=== PATIENT | female | born 1940 | race Caucasian/White ===

== ENCOUNTER → 2021-05-29 10:54 | Outpatient (BNVA) | payer OTHER, SELFPAY | PROVIDERS: Referring Provider Family Medicine; Visit Provider Student in an Organized Health Care Education/Training Program | DX: M16.12 Unilateral primary osteoarthritis, left hip (principal); I10 Essential (primary) hypertension | CPT/HCPCS: 99203 ==

== ENCOUNTER 2021-07-09 14:22 | Outpatient (CLI) | payer OTHER, SELFPAY ==
--- NOTE | 2021-07-09 13:45 | DI.RAD_ITS ---
Exam(s) XR PELVIS AP EXAM: XR PELVIS AP CLINICAL HISTORY: left hip osteoarthritis. TECHNIQUE: 2D digital imaging was performed. COMPARISON: No exams were available for comparison FINDINGS: BONES: No acute fracture is present. No bony destructive lesion is seen. JOINTS: No dislocation present. There are marked degenerative changes of the left hip with loss of th e joint space. There is subchondral sclerosis and cysts present. Periarticular spurring is present. There are also moderately severe degenerative changes in the right hip with near complete loss of t he joint space, subchondral sclerosis and cysts and periarticular spurring. SOFT TISSUE: Normal. IMPRESSION: Marked osteoarthritis of the left hip and moderately severe osteoarthritis of the right hip. DATA REPOSITORY: RADIATION DOSE DELIVERED:
== END 2021-07-09 14:23 | disposition home or self-care (01) ==
LOC: DIORS 14:22
PROVIDERS: PCP Family Medicine; Referring Provider Family Medicine
DX: M25.552 Pain in left hip (principal); Z01.818 Encounter for other preprocedural examination; M16.12 Unilateral primary osteoarthritis, left hip; I10 Essential (primary) hypertension
CPT/HCPCS: 72170

== ENCOUNTER 2021-07-20 01:31 | Outpatient (CLI) | payer MEDICARE, SELFPAY ==
[2021-07-20 12:30] LABS: Source Nasal/Nares
[2021-07-20 18:07] LABS: COVID-19 PCR Negative (Negative)
== END 2021-07-20 01:32 | disposition home or self-care (01) ==
LOC: LBO 01:31
PROVIDERS: PCP Family Medicine; Visit Provider Student in an Organized Health Care Education/Training Program
DX: Z20.822 Contact with and (suspected) exposure to COVID-19 (principal); Z01.818 Encounter for other preprocedural examination
CPT/HCPCS: 87635

== ENCOUNTER 2021-07-20 02:05 | Outpatient (CLI) | payer MEDICARE, SELFPAY ==
[2021-07-20 10:38] LABS: HCT 41.8 % (36.0-46.0); HGB 13.8 g/dL (11.2-15.7); MCH 31.4 pg (27.0-33.0); MCV 95.2 fL (80-95); MPV 9.2 fL (8.0-11.0); Platelet Count 224 10^3/uL (130-400); RBC 4.39 10^6/uL (3.93-5.22); RDW 13.1 % (11.7-14.6); RDW-SD 46.3 fL; WBC 8.34 10^3/uL (4.4-10.8)
[2021-07-20 14:12] LABS: BUN 16 mg/dL (7-18); CO2 29.9 mmol/L (21.0-32.0); CREATININE 0.8 mg/dL (0.55-1.02); Calcium 9.1 mg/dL (8.5-10.1); Chloride 106 mmol/L (98-107); Glucose 81 mg/dL (74-106)
[2021-07-20 14:21] LABS: Anion Gap 9.1 mmol/L (3-11); Sodium 145 mmol/L (136-145)
== END 2021-07-20 02:06 | disposition home or self-care (01) ==
LOC: LBO 02:05
PROVIDERS: PCP Family Medicine; Visit Provider Student in an Organized Health Care Education/Training Program
DX: M25.552 Pain in left hip (principal); M16.12 Unilateral primary osteoarthritis, left hip; Z01.818 Encounter for other preprocedural examination; Z01.812 Encounter for preprocedural laboratory examination
CPT/HCPCS: 36415; 80048; 85027; 86850; 86900; 86901

== ENCOUNTER 2021-07-22 05:58 | Day surgery (SDC) | payer MEDICARE, SELFPAY ==
[2021-07-22] VITALS (10 sets, daily range): BP systolic 113–187; BP diastolic 63–94; PULSE 65–98; RESP 13–21; TEMP 36–36.1; O2SAT 94–98; BMI 25.7
[2021-07-22] MEDS: Acetaminophen 500 MG TAB 1000 MG PO (06:33)
[2021-07-22] MEDS: Lactated Ringers 1,000 ML 80 ML IV (06:33)
[2021-07-22] MEDS: Celecoxib 200 MG CAP 400 MG PO (06:33)
--- NOTE | 2021-07-22 07:02 | ANES.PREOP_ITS ---
General Info Date of Service Date Performed: 07/22/21 Height: 5 ft 4 in Weight: 67.9 kg Body Mass Index (BMI): 25.7 Surgical Procedure: Operation Date: 07/22/21 08:05 Proposed Procedures Side Surgeon p Hip Total Hip Anterior (L) Left Ethan Funes MD Meds Allergies and Home Medications Allergies Allergy/AdvReac Type Severity Reaction Status Date / Time amoxicillin [From Augmentin] Allergy Verified 07/22/21 06:06 caffeine [From Cafcit] Allergy Verified 07/22/21 06:06 clavulanic acid Allergy Verified 07/22/21 06:06 [From Augmentin] ragweed pollen Allergy Verified 07/22/21 06:06 sulfamethoxazole Allergy Verified 07/22/21 06:06 [From Bactrim] trimethoprim [From Bactrim] Allergy Verified 07/22/21 06:06 cefuroxime [From Ceftin] AdvReac Intermediate Other (See Unverified 07/22/21 06:06 Comment) dust Allergy Uncoded 07/22/21 06:06 Home Medication Medication Instructions Recorded acetaminophen 500 mg capsule 500 mg PO Q6H PRN 05/28/21 ascorbic acid (vitamin C) 1,000 mg 1 g PO Q6H 05/28/21 tablet calcium carbonate 600 mg calcium 600 mg PO DAILY 05/28/21 (1,500 mg) tablet cholecalciferol (vitamin D3) 75 1,000 unit PO DAILY tab 05/28/21 mcg (3,000 unit) tablet coenzyme Q10 30 mg capsule 30 mg PO DAILY 05/28/21 epinephrine 0.3 mg/0.3 mL 0.3 mg IM Q5-15M PRN 05/28/21 injection, auto-injector garlic 300 mg PO DAILY 05/28/21 glucosamine-chondroitin 250 mg-200 2 tab PO QPC 05/28/21 mg tablet lactobacillus combination no.4 3 3,000 mmu cells PO DAILY 05/28/21 billion cell capsule lysine 500 mg tablet 500 mg PO DAILY 05/28/21 melatonin 5 mg tablet 5 mg PO HS PRN 05/28/21 metoprolol succinate 50 mg 50 mg PO HS 05/28/21 tablet,extended release 24 hr multivitamin with minerals 1 tab PO DAILY 05/28/21 omega-3 fatty acids 1,000 mg 1,000 mg PO BID 05/28/21 capsule resveratrol 50 mg capsule 50 mg PO DAILY 05/28/21 apixaban 5 mg tablet 5 mg PO BID 05/29/21 atorvastatin 40 mg tablet 40 mg PO QHS 05/29/21 Current Visit Medications: Current Medications Generic Name Dose Route Start Last Admin Trade Name Gentry PRN Reason Stop Dose Admin Acetaminophen 1,000 mg 07/22/21 06:00 07/22/21 06:33 Acetaminophen 500 Mg Tab PO 1,000 mg PREOP CANDI Administration Celecoxib 400 mg 07/22/21 06:00 07/22/21 06:33 Celecoxib 200 Mg Cap PO 400 mg PREOP CANDI Administration Tranexamic Acid 1,000 mg/ 60 mls @ 360 mls/hr 07/22/21 06:00 Sodium Chloride IV PREOP CANDI Ringer's Solution 1,000 mls @ 80 mls/hr 07/22/21 06:00 07/22/21 06:33 IV 08/09/21 23:59 80 mls/hr INFUSION CANDI Administration Cefazolin Sodium/Dextrose 2 gm in 50 mls @ 100 mls/hr 07/22/21 06:00 Ancef Duplex IVPB 07/22/21 23:59 PREOP CANDI IV Miscellaneous Supplies 1 each 07/22/21 06:00 Iv Access IV 08/09/21 23:59 DIRECTED CANDI Sodium Chloride 0 ml 07/22/21 06:00 Normal Saline Flush 10 Ml Syr IV 08/09/21 23:59 PRN PRN Sodium Chloride 0 ml 07/22/21 06:00 Normal Saline 10 Ml Vial IJ 08/09/21 23:59 DIRECTED PRN Sterile Water 0 ml 07/22/21 06:00 Water,Injection,Sterile 10 Ml Vial IJ 08/09/21 23:59 DIRECTED PRN PFSH Active Problems Active Problems: Problem Status Onset Code Dense breast R92.2 Hip osteoarthritis M16.9 Hypertension I10 Left hip pain M25.552 Stress bladder incontinence, female N39.3 Vitamin D deficiency E55.9 Osteoarthritis of left hip M16.12 Medical History Medical History Arthritis Atrial flutter pt. states followed up 04/08/21. 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 Tobacco Smoking/Tobacco Use Status: Former Tobacco Use Alcohol Alcohol Intake: current Alcohol intake frequency: a few times a week Alcohol type: wine Substance Use Substance use: Never Substance use type: does not use Vital Signs and Lab Results Vital Signs Most Recent Vital Signs in EMR: Most Recent Vital Signs Temp Pulse Resp BP Pulse Ox 36.1 C L 71 18 187/94 H 98 07/22/21 06:00 07/22/21 06:00 07/22/21 06:00 07/22/21 06:00 07/22/21 06:00 Lab Results Blood Type / Crossmatch: Patient ABO/Rh A Positive 07/20/21 10:07/20/21 Antibody Screen NEGATIVE 07/20/21 10:26 07/20/21 Complete Blood Count: White Blood Count 8.34 10^3/uL (4.4-10.8) 07/20/21 10:26 07/20/21 Red Blood Count 4.39 10^6/uL (3.93-5.22) 07/20/21 10:26 07/20/21 Hemoglobin 13.8 g/dL (11.2-15.7) 07/20/21 10:26 07/20/21 Hematocrit 41.8 % (36.0-46.0) 07/20/21 10:26 07/20/21 Platelet Count 224 10^3/uL (130-400) 07/20/21 10:26 07/20/21 Complete Metabolic Panel: Sodium Level 145 mmol/L (136-145) 07/20/21 10:26 07/20/21 Potassium Level 4.0 mmol/L (3.5-5.1) 07/20/21 10:07/20/21 Chloride Level 106 mmol/L (98-107) 07/20/21 10:07/20/21 Carbon Dioxide Level 29.9 mmol/L (21.0-32.0) 07/20/21 10:07/20/21 Blood Urea Nitrogen 16 mg/dL (7-18) 07/20/21 10:07/20/21 Creatinine 0.8 mg/dL (0.55-1.02) 07/20/21 10:07/20/21 Estimated GFR/1.73 m2 >= 60.00 (mL/min/1.73m2) 07/20/21 10:07/20/21 Calcium Level 9.1 mg/dL (8.5-10.1) 07/20/21 10:07/20/21 Glucose Level 81 mg/dL (74-106) 07/20/21 10:07/20/21 Liver Function Panel: No Data to Display Coagulation Panel: No Data to Display Cardiac Panel: No Data to Display Arterial Blood Gas: No Data to Display Venous Blood Gas: No Data to Display Pancreas Panel: No Data to Display Thyroid Panel: No Data to Display Infectious Disease: 2 Coronavirus (COVID-19)(PCR) Negative (Negative) 07/20/21 10:45 07/20/21 Coronavirus 2019 Source Nasal/Nares 07/20/21 10:45 07/20/21 Blood Cultures: No Data to Display Toxicology Panel: No Data to Display Anesthesia Assessment and Plan Anesthesia History Personal History: No History of Anesthesia Complications Family History: No Family History of Anesthesia Complications Exercise Tolerance Exercise Tolerance: Metabolic Equivalents>4 Pertinent Negatives Pertinent Negatives: No Symptoms of GERD (Nervous that the Celebrex on an empty stomach will upset her stomache, plan to prophylactically treat with Pepcid IV ) and No History of CVA/TIA (TIA March 2021, started on Apixiban, no residual symptoms) Cardiac & Pulmonary Exam Cardiac Exam: Normal S1/S2 Heart Sounds Pulmonary Exam: Clear Bilateral Breath Sounds Airway Exam Known Difficult Airway: No Mallampati Class: 2 Mouth Opening: Normal (> 3cm) Thyromental Distance: Greater than 3 cm Neck Range of Motion: Limited ROM (Slight decrease in extension) Neck Circumference: Normal Teeth Condition: Normal Dentition ASA Classification ASA Score: ASA 2 Emergency Case?: No NPO Status NPO Status: NPO Clears >2 hours, Solids >8 hours Anesthesia Plan Resuscitation Status: Full Code Anesthesia Technique: Spinal Anesthesia Airway Planned: Natural Airway Monitors Used: Standard Monitors
[2021-07-22] MEDS: ceFAZolin 2 GM/50 ML BAG IVPB (07:56)
[2021-07-22] MEDS: Bupivacaine 0.25% Pres-Free 30 ML VIAL (08:35)
[2021-07-22] MEDS: Ketorolac 30 MG/ML VIAL (08:35)
--- NOTE | 2021-07-22 09:10 | DI.RAD_ITS ---
Exam(s) XR HIP LT IN OR EXAM: XR HIP LT IN OR CLINICAL HISTORY: left hip djd. TECHNIQUE: 2D digital imaging was performed. COMPARISON: No exams were available for comparison FINDINGS: Intraoperative fluoroscopy was provided during hip arthroplasty. Total fluoroscopy time 28.9 seconds: Prompt of dose 3.74mGy IMPRESSION: DATA REPOSITORY: RADIATION DOSE DELIVERED:
--- NOTE | 2021-07-22 09:46 | W.PM.DSUDISC ---
Documented by User: SANTY Guido 07/22/21 09:52 Discharge Plan Disposition Patient Disposition: HOME Condition: Good Discharge Details Reason For Visit: Left CARMEN Attending Provider: Ethan Funes Primary Care Provider: Rob Domingo Home Meds and New Rx's Prescriptions: New celecoxib 200 mg capsule 200 mg PO BID Qty: 60 RF: 3 pantoprazole 40 mg tablet,delayed release (DR/EC) 40 mg PO DAILY Qty: 30 RF: 0 acetaminophen 500 mg capsule 1,000 mg PO Q8H PRN PRNQty: 90 RF: 0 oxycodone 5 mg tablet 5 mg PO Q4H MDD 6 tabs PRN (Reason: pain) Qty: 20 RF: 0 Continued calcium carbonate 600 mg calcium (1,500 mg) tablet 600 mg PO DAILY RF: 0 coenzyme Q10 [CoQ-10] 30 mg capsule 30 mg PO DAILY RF: 0 epinephrine [EpiPen 2-Alvin] 0.3 mg/0.3 mL auto-injector 0.3 mg IM Q5-15M PRNRF: 0 omega-3 fatty acids [Fish Oil Concentrate] 1,000 mg capsule 1,000 mg PO BID RF: 0 garlic Tablet 300 mg PO DAILY RF: 0 multivitamin with minerals [Hair,Skin and Nails] Tablet 1 tab PO DAILY RF: 0 lysine 500 mg tablet 500 mg PO DAILY RF: 0 melatonin 5 mg tablet 5 mg PO HS PRNRF: 0 metoprolol succinate 50 mg tablet extended release 24 hr 50 mg PO HS RF: 0 glucosamine-chondroitin [Osteo Bi-Flex] 250-200 mg tablet 2 tab PO QPC RF: 0 Probiotic 3 billion cell capsule 3,000 mmu cells PO DAILY RF: 0 resveratrol 50 mg capsule 50 mg PO DAILY RF: 0 ascorbic acid (vitamin C) 1,000 mg tablet 1 g PO Q6H RF: 0 cholecalciferol (vitamin D3) 75 mcg (3,000 unit) tablet 1,000 unit PO DAILY RF: 0 Eliquis 5 mg tablet 5 mg PO BID RF: 0 atorvastatin [Lipitor] 40 mg tablet 40 mg PO QHS RF: 0 Discontinued acetaminophen 500 mg capsule 500 mg PO Q6H PRNRF: 0 Discharge Instructions Additional Instructions: Total Hip Discharge Instructions Activity: The most important activity is to walk. You should try to take short walks a few times a day. You have no restrictions on movement or positioning, but do not try to force what you do. You will find some stiffness and weakness with hip flexion (lifting your knee). Do not try to strengthen this too early, continue to practice walking and stairs and this will come. - Outpatient physical therapy can be helpful to help return you to a normal gait and improve your flexibility and strength. This can start around 2 weeks. For some patients, it?s not necessary. Usually this is determined at the time of discharge or at the first post-operative visit. - You should wear the ADEOLA hose on both legs for 2 weeks. Dressing: Keep the surgical dressing in place for at least one week. After the first week it may be removed and replace with light gauze and tape or nothing. It may get wet after 3 days but avoid soaking the dressing. If it gets wet, just lightly pat dry. It is important to always keep some gauze between skin folds, especially when you are sitting. Spend some time with the wound exposed when you are lying flat as the incision does wrinkle onto itself. Medications: - You should take Tylenol and an anti-inflammatory Celebrex as your primary pain control medications. If the Celebrex is too expensive or not covered, please call the office for another alternative (Advil/Ibuprofen or Naproxen/Aleve). - You have been prescribed a stronger pain medication Oxycodone for breakthrough pain, take as needed as prescribed. - You have also been prescribed a stomach acid reduction agent Pantoprozole to help reduce stomach acid and reflux. - You will be taking your apixaban for DVT prevention unless instructed otherwise. - If you have constipation you should take Colace or Miralax (both [id number]). It takes most people 3-4 days to have a bowel movement. Follow-up: 2 weeks If you have any acute concerns or questions, please do not hesitate to contact the office at [phone]. You may contact Dr. Funes with any questions after hours through the hospital at [phone] or on his cell phone at [phone]. Stand Alone Forms: Anesthesia Discharge Inst., Carmen Clark ([facility]) Referrals: Ethan Funes MD [ [facility] STAFF PHYSICIAN] - Equipment/Supplies: Walker Activity:: Activity as Tolerated Shower/Bathe:: 72 hours Diet:: As Tolerated Discharge Orders Discharge Orders: Discharge Order (Routine); Ordered 07/22/21 Ordered By: Ethan Funes DS: Diagnosis Discharge Diagnosis (1) Osteoarthritis of left hip: Status: Acute Documented by User: Ethan Funes MD 07/22/21 10:57 Discharge Plan Disposition Patient Disposition: HOME Condition: Good Discharge Details Reason For Visit: Left CARMEN Attending Provider: Ethan Funes Primary Care Provider: Rob Domingo Home Meds and New Rx's Prescriptions: New celecoxib 200 mg capsule 200 mg PO BID Qty: 60 RF: 3 pantoprazole 40 mg tablet,delayed release (DR/EC) 40 mg PO DAILY Qty: 30 RF: 0 acetaminophen 500 mg capsule 1,000 mg PO Q8H PRN PRNQty: 90 RF: 0 oxycodone 5 mg tablet 5 mg PO Q4H MDD 6 tabs PRN (Reason: pain) Qty: 20 RF: 0 Continued calcium carbonate 600 mg calcium (1,500 mg) tablet 600 mg PO DAILY RF: 0 coenzyme Q10 [CoQ-10] 30 mg capsule 30 mg PO DAILY RF: 0 epinephrine [EpiPen 2-Alvin] 0.3 mg/0.3 mL auto-injector 0.3 mg IM Q5-15M PRNRF: 0 omega-3 fatty acids [Fish Oil Concentrate] 1,000 mg capsule 1,000 mg PO BID RF: 0 garlic Tablet 300 mg PO DAILY RF: 0 multivitamin with minerals [Hair,Skin and Nails] Tablet 1 tab PO DAILY RF: 0 lysine 500 mg tablet 500 mg PO DAILY RF: 0 melatonin 5 mg tablet 5 mg PO HS PRNRF: 0 metoprolol succinate 50 mg tablet extended release 24 hr 50 mg PO HS RF: 0 glucosamine-chondroitin [Osteo Bi-Flex] 250-200 mg tablet 2 tab PO QPC RF: 0 Probiotic 3 billion cell capsule 3,000 mmu cells PO DAILY RF: 0 resveratrol 50 mg capsule 50 mg PO DAILY RF: 0 ascorbic acid (vitamin C) 1,000 mg tablet 1 g PO Q6H RF: 0 cholecalciferol (vitamin D3) 75 mcg (3,000 unit) tablet 1,000 unit PO DAILY RF: 0 Eliquis 5 mg tablet 5 mg PO BID RF: 0 atorvastatin [Lipitor] 40 mg tablet 40 mg PO QHS RF: 0 Discontinued acetaminophen 500 mg capsule 500 mg PO Q6H PRNRF: 0 Discharge Instructions Additional Instructions: Total Hip Discharge Instructions Activity: The most important activity is to walk. You should try to take short walks a few times a day. You have no restrictions on movement or positioning, but do not try to force what you do. You will find some stiffness and weakness with hip flexion (lifting your knee). Do not try to strengthen this too early, continue to practice walking and stairs and this will come. - Outpatient physical therapy can be helpful to help return you to a normal gait and improve your flexibility and strength. This can start around 2 weeks. For some patients, it?s not necessary. Usually this is determined at the time of discharge or at the first post-operative visit. - You should wear the ADEOLA hose on both legs for 2 weeks. Dressing: Keep the surgical dressing in place for at least one week. After the first week it may be removed and replace with light gauze and tape or nothing. It may get wet after 3 days but avoid soaking the dressing. If it gets wet, just lightly pat dry. It is important to always keep some gauze between skin folds, especially when you are sitting. Spend some time with the wound exposed when you are lying flat as the incision does wrinkle onto itself. Medications: - You should take Tylenol and an anti-inflammatory Celebrex as your primary pain control medications. If the Celebrex is too expensive or not covered, please call the office for another alternative (Advil/Ibuprofen or Naproxen/Aleve). - You have been prescribed a stronger pain medication Oxycodone for breakthrough pain, take as needed as prescribed. - You have also been prescribed a stomach acid reduction agent Pantoprozole to help reduce stomach acid and reflux. - You will be taking your apixaban for DVT prevention unless instructed otherwise. - If you have constipation you should take Colace or Miralax (both [id number]). It takes most people 3-4 days to have a bowel movement. Follow-up: 2 weeks If you have any acute concerns or questions, please do not hesitate to contact the office at [phone]. You may contact Dr. Funes with any questions after hours through the hospital at [phone] or on his cell phone at [phone]. Stand Alone Forms: Anesthesia Discharge Inst., Carmen Clark ([facility]) Referrals: Ethan Funes MD [ [facility] STAFF PHYSICIAN] - Equipment/Supplies: Walker Activity:: Activity as Tolerated Shower/Bathe:: 72 hours Diet:: As Tolerated Discharge Orders Discharge Orders: Discharge Order (Routine); Ordered 07/22/21 Ordered By: Ethan Funes
--- NOTE | 2021-07-22 11:16 | W.ANESPOSTOP ---
Postoperative Evaluation Date, Time and Location Date Performed: 07/22/21 Time Performed: 11:16 Patient Location: Day Surgery Unit Vital Signs Most Recent Imported Vital Signs: Most Recent Vital Signs Temp Pulse Resp BP Pulse Ox 36.1 C L 67 18 159/86 H 97 07/22/21 10:30 07/22/21 10:30 07/22/21 10:30 07/22/21 10:30 07/22/21 10:30 Pain Score Most Recent Pain Score: Most Recent Pain Score Pain Level 0 07/22/21 10:30 Assessment Mental Status: Awake (Alert & Oriented to Patient Baseline) Airway and Respiratory Function: Patent airway with normal (patient baseline) respiratory exam Cardiovascular Function: Hemodynamically Stable Hydration Status: Adequately Hydrated Nausea & Vomiting: No Nausea or Vomiting Pain: Pt. Denies Any Pain Peripheral Nerve Block: Patient did not receive a nerve block Teaching Patient Teaching: Discussed Safe Use of Pain Medication Given Recent Anesthesia
--- NOTE | 2021-07-22 13:17 | IN_ITS ---
Date of service: 07/22/21 Time of Service: 13:17 PT Notes Visit Reasons: Left CARMEN Physical Therapy Day Surgery Initial Evaluation Date: 07/22/2021 Referring Doctor: SANTY Guido PT Orders: PT CONSULT: Status post Ortho surgery. Precautions: WBAT on left LE with AD. Patient Profile/Admitting Diagnosis: Shala is a 81-year-old female with degenerative joint disease of the left hip and is status post left anterior total hip arthroplasty on postoperative day 0. 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 Equipment Owned/DME: [employer] Subjective: Agreeable to PT consult. Reports 3?4/10 pain in the left hip. Objective: General Observation: Mepilex Ag over surgical incision. TEDS on B LE. Mental Status: Alert and oriented x 4 Pain: 3?4/10 pain in the left hip ROM: Right Lower Extremity: Hip flexion WFL. Hip abduction WFL. Knee flexion WFL. Ankle dorsiflexion WFL. Ankle plantarflexion WFL. Left Lower Extremity: Hip flexion WFL. Hip abduction WFL. Knee flexion WFL. Ankle dorsiflexion WFL. Ankle plantarflexion WFL. Strength: Lower you doing with your food and Right Lower Extremity: Hip flexors 5/5. Hip abductors 5/5. Knee flexors 5/5. Knee extensors 5/5. Ankle dorsiflexors 5/5. Ankle plantarflexors 5/5. Left Lower Extremity:Hip flexors 4/5. Hip abductors 4/5. Knee flexors 5/5. Knee extensors 4/5. Ankle dorsiflexors 5/5. Ankle plantarflexors 5/5. Sensation: Intact as to pain and light pressure in BLE. Bed Mobility/Transfers: Supine to sit supervision Sit to stand contact-guard assist Stand to sit standby assist Bed to chair standby assist Gait: Instructed patient with correct and safe gait pattern using front wheeled walker for 75 feet with step to gait pattern and report of 4?5/10 pain in left hip. Ordered initially mild lightheadedness but eventually subsided. Denies headache and chest pain. He has Balance: Static Sitting: Normal Dynamic Sitting: Good Static Standing: Fair Dynamic Standing: Fair Special Tests: Mobility Limitations Standardized Measure [facility]-PAC 6 clicks Basic Mobility Inpatient Short Form: Raw Score: 23 CMS Score: 11% deficit all Informed Consent/Education: Patient instructed in purpose of PT consult. Packet containing L CARMEN exercise protocol has been given to patient. Education and training on initial set of exercises that can be done at home have been completed with patient. Assessment: Patient requires the use of a front wheeled walker for all transfers test performed to reduce fall risk and maximize independence. Patient presents with clinical signs and symptoms consistent with current/admitting diagnoses that have resulted to mobility limitations, gait instability, generalized weakness, and impairment of motor control as demonstrated by the following impairment level findings: 1. Decreased strength to left hip major muscle groups 2. Impaired standing balance both 07329 moderate Impairments are contributing to the following functional limitations: 1. Inability to safely ambulate without assistive device 2. Increase completion time for mobility ADL performance 3. Increased fall risk Patient is assessed as a complexity based on the following: History: 81-year-old female involving with impairment level findings, functional limitations, and past medical history as indicated above Examination: Demonstrable impairment in strength, balance, and mobility level with underlying impairments and functional limitations as documented above Presentation: Evolving Decision Makin moderate complexity Goals: N/A. PT evaluation and 1-2 treatment sessions only for functional mobility training using recommended AD and for HEP instruction. Plan of Care/Treatment Plan: N/A. PT evaluation and 1-2 treatment session only for functional mobility training using recommended AD and for HEP instruction. DISCHARGE RECOMMENDATIONS: Home when medically cleared by orthopedic surgeon. Outpatient PT services in order to facilitate return to independent community ambulation without an assistive device. TREATMENT CODE/TIME: 61611 x 20 minutes, 95050 x 11 minutes beginning at 13:17 PM. Thank you for the opportunity to participate in the care of this patient. Edith Ventura PT, DPT, CLT [facility] [place], [place]
--- NOTE | 2021-07-23 06:54 | ROE_ITS ---
Date of service: 07/22/21 Time of Service: 09:16 Operative Note Operative Note DATE OF PROCEDURE: 07/23/21 PRE-OP DIAGNOSIS: Left Hip Osteoarthritis POST-OP DIAGNOSIS: same PROCEDURE: Left Anterior Total Hip Arthroplasty SURGEON: Ethan Funes AIRCRAFT INSTRUMENT ENGINEER: Reginald Garcia ANESTHESIA TYPE: Spinal Refer to Anesthesia Record ESTIMATED BLOOD LOSS: 150 PATHOLOGY: none sent COMPLICATIONS: None Patient was transported to: PACU Patient's condition: stable Implants: 1. Depuy [place] Acetabular Component, 50mm 2. Depuy Acetabular Liner, [id number] 3. Depuy Corail Short Neck Collared Femoral Stem, Size 13 4. Depuy Altrx Ceramic Femoral Head, Size 32+5mm Indications: I have seen Shala in clinic for symptoms of hip arthritis, confirmed with radiographic findings. Shala has exhausted nonoperative methods and was having significant limitations in daily function and desired better function and less pain. I discussed the technical details of a hip replacement. I explained the risks of the procedure to include, but not limited to, bleeding, infection, pain, stiffness, fracture, damage to nerves and vessels, damage to muscles and tendons, loosening, instability, leg length inequality, need for repeat procedure, blood clot and cardiopulmonary demise. Despite these risks, Shala elected to proceed. Findings: There was significant signs of arthritis throughout the hip. Procedure Description: Shala was greeted in the preoperative holding area where the correct side was identified and marked. The consent was reviewed with the patient and signed. The history and physical was updated. All questions were answered. She was taken back to the operating room. A spinal anesthestic was then administered. The feet were wrapped with cast padding and Coban and then placed into the boot liners and then into the boots. Care was taken to protect the skin and make sure the heels were fully down and the boots were stable. The patient was then positioned onto the HANA table. Both legs were held in a neutral position. SCDs were applied. The patient was then slid down onto a peroneal post. Prophylactic antibiotics in the form of Cefazolin were administered. 1g of Tranxemic Acid was given intravenously within 30 minutes of incision. The left leg was then prepped with Chloraprep and draped in a standard fashion. A second prep with Chloraprep was performed prior to placement of a shower-curtain type drape with Iodine impregnated skin protection. A timeout to confirm correct identity, side and site, procedure, allergies, anesthesia, and medical concerns was performed. An obliquely oriented incision was made starting lateral to the ASIS and running distal over the Tensor Fascia Liliane (TFL) muscle belly toward the fibular head, approximately 10cm. The skin and soft tissue was dissected sharply, through Rolly?s fascia, and to the fascia of the TFL. With the fascia and superior border of the IT band identified, the fascia was incised with a new knife just above any perforators from the IT band. The TFL muscle belly was bluntly dissected away from the fascia and moved laterally. The fat between TFL and rectus was identified to ensure the dissection was not within the TFL. Blunt dissection created space between abductors and the capsule and retractor was placed over the lateral femoral neck. The fibers of the rectus femoris tendon were identified and these were freed from the anterior capsule. A second cobra retractor was placed around the medial femoral neck. The TFL was further retracted laterally to show the deep fascia. Careful dissection through this layer identified three main crossing vessels of the lateral femoral circumflex. These were cauterized in multiple locations and then cut without any noticeable bleeding. The TFL was further released bluntly from the deep fascia to expose anterior hip capsule and fat The Ti orthopaedic retractor was then placed beneath the TFL and against sartorius and medial soft tissues to protect and retract the soft tissues. A T-capsulotomy was then performed starting at the superior lateral acetabulum and moving distally to the intertrochanteric ridge. These capsular flaps were tagged with a No. 1 Ethibond and elevated from within. The capsular flaps were released to the shoulder of the lateral neck and to the lesser trochanter to give excellent visualization of the proximal femur. A neck osteotomy was performed using an oscillating saw based on preoperative templates. This cut started in the shoulder and of the lateral neck and exited medially. The saw was at all times directed medially to avoid injury to the greater trochanter. Gross traction was applied to the leg and the osteotomy opened. The femoral head was removed with a corkscrew, making sure to protect the TFL on its exit. Traction was released after head removal. This was measured on the back table to determine the starting reamer size. Portions of the rectus obscuring visualization were minimally elevated off the superior acetabulum. An anterior retractor was placed over the anterior wall between capsule and labrum and attached to the Gripper retraction system. The femur was rotated to 90 degrees and medial capsule was fully released until the lesser trochanter was palpable and visible; the femur was returned to 30 degrees. A posterior retractor was placed similarly between capsule and labrum. This provided excellent visualization. The contents of the cotyloid fossa were removed with electrocautery and the labrum was removed with a knife. There was a notable floor osteophyte. There was significant chondromalacia of the superior acetabulum. Acetabular reaming began with a 45mm reamer. This first reaming was directed anterior to posterior and medial to get down to the true floor. This was inspected and reamed until the true floor was reached. The anterior retractor was then released and entry and exit was provided by traction on the capsular flaps. I then reamed sequentially up to a 50mm reamer where good fit was obtained. The larger reamers were oriented based on anatomical reference of the anterior and lateral crook to ensure proper abduction and anteversion. Positioning and size was confirmed with the fluoroscopy. A 50mm Depuy [place] acetabular component was selected. The acetabulum was reamed around the periphery with the selected acetabular size to prevent a rim fit. The deep tissues were irrigated. The acetabular component was then impacted in a position of about 40-45 degrees of abduction and 15-20 degrees of anteversion, using the patient?s anatomy as the ultimate landmark. Fluoroscopy was used to confirm this. There was excellent emissions testing technician of the acetabular component and the inserting handle was removed. The acetabular liner, Depuy [id number] polyethylene liner, was inserted and lined up with the tines of the acetabular component. There was no soft tissue interposition. The liner was then impacted into position and confirmed to be well-seated. A portion of the whitley-articular cocktail was then injected around the acetabulum into the capsule and periosteum. This cocktail consisted of 50cc of 0.25% Bupivicaine and 20cc of Exparel and 30mg of Ketorolac. The leg was rotated to 120 degrees. Any remaining medial capsule was released until the lesser trochanter was easily palpable. A retractor was placed medial ly. The lateral capsule was further released into the shoulder to allow access to the greater trochanter. A Radford retractor was placed over the greater trochanter which allowed the trochanter to flip in front of the capsule for excellent exposure. The leg was brought down into maximal extension and 20 degrees of adduction while ensuring there was no impingement on the acetabulum. Any remnant capsule within the trochanter was released. Piriformis and obturator externis were identified and protected. There was excellent access to the proximal femur. The lateral neck remnant was removed with a rongeur. A blunt canal probe was used to identify the canal and trajectory for later broaching. A box osteotome initiated the broach course. A small curved rasp and a curved curette were used to work laterally. Broaching then began with a size 8 Corail broach. This was inserted manually around the trochanter and into the canal before mallet blows. The broach was seated to a few millimeters below the cut level based on the neck cut and the preoperative template. Sequential broaching was continued with the [employer] pneumatic broaching device until a tight fit was obtained with good rotational control of the femur. A trial short neck was inserted along with a +5 trial head. The leg was brought out of extension and adduction and then reduced with traction and internal rotation. The leg was stable anteriorly in a position of 30 degrees of extension and 90 degrees of external rotation. Fluoroscopy was used to ensure there was no fracture and the stem was seated well. Leg lengths were checked with an AP pelvis and pelvic reference points. Xunlei navigation system was used to confirm appropriate positioning and leg length and offset. Once content with the desired offset and leg lengths, the leg was brought back into extension, external rotation and adduction. The periosteum and surrounding tissue was injected with remaining portion of the whitley-articular cocktail. The proximal femur was irrigated as well as the deep tissues. The Depuy Corail short neck collared stem, size 13, was then manually inserted into the proximal femur making sure to control rotation. It was then malleted into position with light blows, giving breaks to allow bone expansion and decrease risk of fracture. The selected Depuy Altrx Ceramic Head, size 32+5mm, was then placed onto the clean and dry trunnion and secured with impaction onto the tapered fit. The leg was brought back out of extension and adduction and reduced with traction and internal rotation. Stability was confirmed with no shuck at 90 degrees of external rotation and 30 degrees of extension. No impingement through range of motion arc. Final x-ray images were obtained with fluoroscopy to confirm adequate positioning and no intraoperative fracture. The deep tissues were thoroughly irrigated with Irrisept chlorhexadine solution. The capsule was then reapproximated with the previously placed Ethibond sutures. The TFL fascia was finally closed with a No. 2 Stratafix, barbed suture. Deep tissues were then reapproximated with 0 Vicryl and a running 2-0 Vicryl. The skin was closed with a running 4-0 Monocryl in a subcuticular fashion. This was reinforced with skin glue. A Mepilex silver dressing was applied. At the end of the case, all counts were correct. Shala was transferred to the hospital stretcher without difficulty and suffering no apparent complication. She has a good prognosis. Physical therapy will start today and without restrictions, weight-bearing as tolerated. Her home dose of Apixaban 5mg BID will be used for DVT prophylaxis.
== END 2021-07-22 14:10 | disposition home or self-care (01) ==
PROVIDERS: PCP Family Medicine; Visit Provider Student in an Organized Health Care Education/Training Program
PROC: (CPT 27130; principal; 2021-07-22 07:45)
DX: M16.12 Unilateral primary osteoarthritis, left hip (principal); Z96.652 Presence of left artificial knee joint; I10 Essential (primary) hypertension; Z86.19 Personal history of other infectious and parasitic diseases; Z87.19 Personal history of other diseases of the digestive system
CPT/HCPCS: 27130; 20985; C1776; 97162; 97530; 73501; J0690; J1885; J2001; J2405

== ENCOUNTER 2021-08-03 10:34 | Outpatient (CLI) | payer MEDICARE, SELFPAY ==
--- NOTE | 2021-08-03 10:00 | DI.RAD_ITS ---
Exam(s) XR HIP LT COMPLETE AP PELVIS EXAM: XR HIP LT COMPLETE AP PELVIS CLINICAL HISTORY: 1ST POST OP L CARMEN. TECHNIQUE: 2D digital imaging was performed. COMPARISON: CR XR PELVIS AP from 07/09/2021 FINDINGS: There is satisfactory position alignment of the components of the recently placed left hip prosthesis . No fracture or loosening evident. IMPRESSION: DATA REPOSITORY: RADIATION DOSE DELIVERED:
== END 2021-08-03 10:35 | disposition home or self-care (01) ==
LOC: DIORS 10:35
PROVIDERS: PCP Family Medicine; Referring Provider Family Medicine; Visit Provider Student in an Organized Health Care Education/Training Program
DX: Z96.642 Presence of left artificial hip joint (principal); Z47.1 Aftercare following joint replacement surgery
CPT/HCPCS: 73502

== ENCOUNTER → 2021-08-31 14:23 | Outpatient (BNVA) | payer MEDICARE, SELFPAY | PROVIDERS: PCP Family Medicine; Referring Provider Family Medicine; Visit Provider Student in an Organized Health Care Education/Training Program | DX: Z47.1 Aftercare following joint replacement surgery (principal); Z96.642 Presence of left artificial hip joint; M65.311 Trigger thumb, right thumb; M89.8X4 Other specified disorders of bone, hand | CPT/HCPCS: 99213 ==

== ENCOUNTER 2024-04-09 09:10 | Outpatient (CLI) | payer MEDICARE, SELFPAY ==
--- NOTE | 2024-04-09 08:45 | DI.RAD_ITS ---
Exam(s) XR HIP RT COMPLETE AP PELVIS EXAM: XR HIP RT COMPLETE AP PELVIS CLINICAL HISTORY: RIGHT HIP PAIN. TECHNIQUE: 2D digital imaging was performed of the right hip. Two images were obtained. AP pelvis a nd lateral right hip views were obtained. COMPARISON: CR XR HIP LT COMPLETE AP PELVIS from 08/03/2021 FINDINGS: BONES: No acute fracture is present. No bony destructive lesion is seen. JOINTS: No dislocation present. There is a left total hip replacement which appears grossly unremarka ble on the single image. There is marked narrowing of the central right hip joint space. There is a subchondral cyst seen in the acetabulum. Osteophytes is seen at the femoral head. SOFT TISSUE: Normal. IMPRESSION: There are marked degenerative changes seen in the right hip. DATA REPOSITORY: RADIATION DOSE DELIVERED:
== END 2024-04-09 09:11 | disposition home or self-care (01) ==
LOC: DIORS 09:10
PROVIDERS: PCP Family Medicine; Referring Provider Family Medicine; Visit Provider Student in an Organized Health Care Education/Training Program
DX: M16.11 Unilateral primary osteoarthritis, right hip
CPT/HCPCS: 99213; 73502

== ENCOUNTER 2024-05-21 14:06 | Outpatient (CLI) | payer MEDICARE, SELFPAY ==
[2024-05-21 11:41] LABS: HCT 39.4 % (36.0-46.0); HGB 13.2 g/dL (11.2-15.7); MCH 32.2 pg (27.0-33.0); MCHC 33.5 % (32.0-36.0); MCV 96 fL (80-95); MPV 9.5 fL (8.0-11.0); Platelet Count 228 10^3/uL (130-400); RDW 12.8 % (11.7-14.6); RDW-SD 45.1 fL; WBC 7.61 10^3/uL (4.4-10.8)
[2024-05-21 12:17] LABS: Anion Gap 5.9 mmol/L (3-11); BUN 20 mg/dL (7-18); CO2 32.1 mmol/L (21.0-32.0); CREATININE 0.8 mg/dL (0.55-1.02); Calcium 9.5 mg/dL (8.5-10.1); Chloride 103 mmol/L (98-107); Estimated GFR 73.52 (mL/min/1.73m2); Glucose 87 mg/dL (74-106); Potassium 3.5 mmol/L (3.5-5.1); Sodium 141 mmol/L (136-145)
== END 2024-05-21 14:07 | disposition home or self-care (01) ==
LOC: LBO 14:06
PROVIDERS: PCP Family Medicine; Visit Provider Student in an Organized Health Care Education/Training Program
DX: M16.11 Unilateral primary osteoarthritis, right hip (principal); Z01.818 Encounter for other preprocedural examination
CPT/HCPCS: 36415; 80048; 85027

== ENCOUNTER 2024-06-20 07:46 | Day surgery (SDC) | payer MEDICARE, SELFPAY ==
[2024-06-20] VITALS (14 sets, daily range): BP systolic 102–186; BP diastolic 57–91; PULSE 62–75; RESP 13–18; TEMP 36.1–36.7; O2SAT 92–97; BMI 25.9
--- NOTE | 2024-06-20 06:23 | W.ANESPRE ---
General Info Date of Service Date Performed: 06/20/24 Height: 5 ft 4 in Weight: 68.5 kg Body Mass Index (BMI): 25.9 Surgical Procedure: Operation Date: 06/20/24 10:05 Proposed Procedure Side Surgeon p Hip Total Hip Anterior, Corail Short Neck Right Ethan Funes MD Meds Allergies and Home Medications Allergies Allergy/AdvReac Type Severity Reaction Status Date / Time sulfamethoxazole (From Allergy Intermediate Skin Rash Verified 06/20/24 08:32 Bactrim) trimethoprim (From Bactrim) Allergy Intermediate Skin Rash Verified 06/20/24 08:32 caffeine (From Cafcit) Allergy Mild Unknown Verified 06/20/24 08:32 ragweed pollen Allergy Unknown Verified 06/20/24 08:32 amoxicillin (From Augmentin) AdvReac Intermediate Diarrhea Verified 06/20/24 08:32 cefuroxime (From Ceftin) AdvReac Intermediate Other (See Unverified 06/20/24 08:32 Comment) clavulanic acid (From AdvReac Intermediate Diarrhea Verified 06/20/24 08:32 Augmentin) dust Allergy Unknown Uncoded 06/20/24 08:32 Home Medication ?Medication ?Instructions ?Recorded ascorbic acid (vitamin C) 1,000 mg 1 g PO Q6H 05/28/21 tablet calcium carbonate 600 mg PO DAILY 05/28/21 cholecalciferol (vitamin D3) 75 1,000 unit PO DAILY 05/28/21 mcg (3,000 unit) tablet coenzyme Q10 30 mg capsule (CoQ-10) 100 mg PO DAILY 05/28/21 epinephrine 0.3 mg/0.3 mL 0.3 mg IM Q5-15M PRN 05/28/21 injection, auto-injector (EpiPen 2-Alvin) garlic 300 mg PO DAILY 05/28/21 glucosamine-chondroitin 250 mg-200 2 tab PO QPC 05/28/21 mg tablet (Osteo Bi-Flex) lactobacillus combination no.4 3 3,000 mmu cells PO DAILY 05/28/21 billion cell capsule (Probiotic) lysine 500 mg tablet 1,000 mg PO BID 05/28/21 multivitamin with minerals 1 tab PO DAILY 05/28/21 (Hair,Skin and Nails tablet) omega-3 fatty acids 1,000 mg 1,000 mg PO HS 05/28/21 capsule (Fish Oil Concentrate) resveratrol 50 mg capsule 150 mg PO DAILY 05/28/21 apixaban 5 mg tablet (Eliquis) 5 mg PO BID 05/29/21 chlorthalidone 25 mg tablet 25 mg PO DAILY 04/09/24 metoprolol succinate 50 mg 100 mg PO HS 04/09/24 tablet,extended release 24 hr rosuvastatin 10 mg tablet 10 mg PO DAILY 04/09/24 psyllium husk 6 gram/6 gram oral 1 tbsp PO DAILY 06/19/24 powder (Konsyl Sugar-Free) turmeric root extract 500 mg 1,000 mg PO DAILY 06/19/24 capsule acetaminophen 500 mg tablet 1,000 mg (2 x 500 mg) PO TID #90 06/20/24 tabs celecoxib 200 mg capsule 200 mg PO BID #60 caps 06/20/24 oxycodone 5 mg tablet 5 mg PO Q4H PRN pain #20 tabs 06/20/24 pantoprazole 40 mg tablet,delayed 40 mg PO DAILY #30 tabs 06/20/24 release Current Visit Medications: Current Medications Generic Name Dose Route Start Last Admin Trade Name Wingq PRN Reason Stop Dose Admin Acetaminophen 1,000 mg 06/20/24 06:00 Acetaminophen 500 Mg Tab PO 06/20/24 23:59 PREOP CANDI Celecoxib 400 mg 06/20/24 06:00 Celecoxib 200 Mg Cap PO 06/20/24 23:59 PREOP CANDI Gabapentin 300 mg 06/20/24 06:00 Gabapentin 300 Mg Cap PO 06/20/24 23:59 PREOP CANDI Ringer's Solution 1,000 mls @ 80 mls/hr 06/20/24 06:00 IV 06/20/24 23:59 INFUSION CANDI Cefazolin Sodium/Dextrose 2 gm in 50 mls @ 100 mls/hr 06/20/24 06:00 Ancef Duplex IVPB 06/20/24 23:59 PREOP CANDI Tranexamic Acid/Sodium Chloride 1,000 mg in 100 mls @ 600 mls/hr 06/20/24 06:00 IVPB 06/20/24 23:59 PREOP CANDI IV Miscellaneous Supplies 1 each 06/20/24 06:00 Iv Access IV 06/20/24 23:59 DIRECTED CANDI Sodium Chloride 0 ml 06/20/24 06:00 Normal Saline Flush 10 Ml Syr IV 06/20/24 23:59 PRN PRN Sodium Chloride 0 ml 06/20/24 06:00 Normal Saline 10 Ml Vial IJ 06/20/24 23:59 DIRECTED PRN Sterile Water 0 ml 06/20/24 06:00 Water,Injection,Sterile 10 Ml Vial IJ 06/20/24 23:59 DIRECTED PRN PFSH Active Problems Active Problems: Problem Status Onset Code Osteoarthritis of right hip Chronic M16.11 Snapping lateral band due to exostosis Acute M89.8X9 Trigger thumb of right hand Acute M65.311 Dense breast Acute R92.2 Hip osteoarthritis Acute M16.9 Hypertension Chronic I10 Left hip pain Acute M25.552 Stress bladder incontinence, female Acute N39.3 Vitamin D deficiency Acute E55.9 Medical History Medical History History of malignant melanoma of skin face Ruptured lumbar disc lumbosacral region Hx of transient ischemic attack (TIA) 04/06/21 Uterovaginal prolapse, incomplete Stress at home Skin cancer Sinusitis Sciatica Postmenopausal bleeding Resolved Postherpetic neuralgia history of shingles Ovarian cyst Osteopenia Menopausal syndrome Laryngopharyngeal reflux Lactose intolerance Inguinal hernia Herpes zoster Hearing loss Dyspnea Degenerative joint disease 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 [facility] Tobacco Smoking/Tobacco Use Status: Former Tobacco Use Alcohol Alcohol Intake: current Alcohol intake frequency: a few times a week Alcohol type: wine Substance Use Substance use: Never Substance use type: does not use Vital Signs and Lab Results Vital Signs Most Recent Vital Signs in EMR: Temp Pulse Resp BP Pulse Ox 36.4 C L 67 16 186/88 H 97 06/20/24 08:07 06/20/24 08:07 06/20/24 08:07 06/20/24 08:07 06/20/24 08:07 Lab Results Blood Type / Crossmatch: No Data to Display Complete Blood Count: White Blood Count 7.61 10^3/uL (4.4-10.8) 05/21/24 11:32 Red Blood Count 4.10 10^6/uL (3.93-5.22) 05/21/24 11:32 Hemoglobin 13.2 g/dL (11.2-15.7) 05/21/24 11:32 Hematocrit 39.4 % (36.0-46.0) 05/21/24 11:32 Platelet Count 228 10^3/uL (130-400) 05/21/24 11:32 Complete Metabolic Panel: Sodium 141 mmol/L (136-145) 05/21/24 11:32 Potassium 3.5 mmol/L (3.5-5.1) 05/21/24 11:32 Chloride 103 mmol/L (98-107) 05/21/24 11:32 Carbon Dioxide 32.1 mmol/L (21.0-32.0) H 05/21/24 11:32 BUN 20 mg/dL (7-18) H 05/21/24 11:32 Creatinine 0.8 mg/dL (0.55-1.02) 05/21/24 11:32 Est GFR (CKD-EPI 2020) 73.52 (mL/min/1.73m2) 05/21/24 11:32 Calcium 9.5 mg/dL (8.5-10.1) 05/21/24 11:32 Glucose 87 mg/dL (74-106) 05/21/24 11:32 Liver Function Panel: No Data to Display Coagulation Panel: No Data to Display Cardiac Panel: No Data to Display Arterial Blood Gas: No Data to Display Venous Blood Gas: No Data to Display Pancreas Panel: No Data to Display Thyroid Panel: No Data to Display Infectious Disease: No Data to Display Blood Cultures: No Data to Display Toxicology Panel: No Data to Display Imaging and Studies Imaging and Studies Study information below may be from another EMR and interpreted by another provider. Please see original notes in EMR for more complete details. EKG Summary: 06/02: sinus, ? LAE. Anesthesia Assessment and Plan Anesthesia History Personal History: No History of Anesthesia Complications Family History: No Family History of Anesthesia Complications Exercise Tolerance Exercise Tolerance: Metabolic Equivalents>4 Pertinent Negatives Pertinent Negatives: No Major Pulmonary Symptoms or Complaints Cardiac & Pulmonary Exam Cardiac Exam: Normal S1/S2 Heart Sounds Pulmonary Exam: Clear Bilateral Breath Sounds Implantable Cardiac Device Does patient have a Pacemaker or an ICD?: No Airway Exam Known Difficult Airway: No Mallampati Class: 2 Mouth Opening: Normal (> 3cm) Thyromental Distance: Greater than 3 cm Neck Range of Motion: Limited ROM Neck Circumference: Normal Teeth Condition: Normal Dentition ASA Classification ASA Score: ASA 3 Emergency Case?: No NPO Status NPO Status: NPO Clears >2 hours, Solids >8 hours Anesthesia Plan Resuscitation Status: Full Code Anesthesia Technique: Spinal Anesthesia Airway Planned: Natural Airway Monitors Used: Standard Monitors Preoperative Comments:: 84 yo female for CARMEN. Sig PMHx: HTN, afib/flutter (apixaban - last dose evening 06/16/24), TIA, sciatica, former smoker, occ EtOh. Occasional GERD, sleeps ramped, no meds. Reports no symptoms today, reports not hungy, not full but inbetween. Previous Anes: - CARMEN, spinal 1.2 mL heavy, prop sedation, ephedrine.
--- NOTE | 2024-06-20 08:45 | DI.RAD_ITS ---
Exam(s) XR HIP RT IN OR EXAM: XR HIP RT IN OR CLINICAL HISTORY: Osteoarthritis of right hip. TECHNIQUE: 2D and realtime digital imaging was performed. COMPARISON: No exams were available for comparison FINDINGS: Hard copy images show placement of a right hip prosthesis. The alignment appears satisfactory. Please see procedure note for details. Fluoro time: 38seconds RADIATION DOSE DELIVERED: Ka,r=5.45 mGy
[2024-06-20] MEDS: Celecoxib 200 MG CAP 400 MG PO (08:47)
[2024-06-20] MEDS: Acetaminophen 500 MG TAB 1000 MG PO (08:48)
[2024-06-20] MEDS: Gabapentin 300 MG CAP PO (08:48)
[2024-06-20] MEDS: Lactated Ringers 1,000 ML 80 ML IV (09:10)
--- NOTE | 2024-06-20 09:10 | W.PREOPHP ---
Assessment and Plan Assessment and plan (1) Osteoarthritis of right hip: Status: Resolved Assessment and plan: Reviewed operative note from left CARMEN on 07/23/2021 which states the following implants were used: Depuy [place] Acetabular Component, 50mm Depuy Acetabular Liner, [id number] Depuy Corail Short Neck Collared Femoral Stem, Size 13 Depuy Altrx Ceramic Femoral Head, Size 32+5mm Shala is an 84-year-old active female who has known arthritis about the right hip. She is here today for right hip replacement. I went over in detail the possible complications of hip replacement. These include but are not limited to bleeding, infection, pain, stiffness, weakness, damage to nerves (especially the lateral femoral cutaneous nerve), damage to vessels, damage to muscle and tendon, fracture, leg length inequality, wound healing complications, instability, dislocation, and blood clot. Questions were answered. I again expressed that this is a surgery to improve functional quality of life. She did very well after her left hip replacement is anxious to proceed with the right side. After a review of the presented information and risks, Shala desired to proceed. History of Present Illness History of Present Illness Chief Complaint: Right Hip Arthritis Narrative: Sahla is an 84-year-old female who has known arthritis about the right hip. She has been seen in the office for this. She will underwent a left hip replacement about 3 years ago with excellent results. She did have some persistent postnasal drip and sputum production which has now completely ceased. She denies any chest pain or shortness of breath. She denies any fevers or chills. Review of Systems All systems reviewed & are unremarkable except as noted in HPI and below PFSH All Active Problems History of total right hip replacement (Acute 06/20/24) Snapping lateral band due to exostosis (Acute) Right middle finger PIP Trigger thumb of right hand (Acute) Dense breast (Acute) Hip osteoarthritis (Acute) Hypertension (Chronic) Left hip pain (Acute) Stress bladder incontinence, female (Acute) Vitamin D deficiency (Acute) Medical History History of malignant melanoma of skin face Ruptured lumbar disc lumbosacral region Hx of transient ischemic attack (TIA) 04/06/21 Uterovaginal prolapse, incomplete Stress at home Skin cancer Sinusitis Sciatica Postmenopausal bleeding Resolved Postherpetic neuralgia history of shingles Ovarian cyst Osteopenia Menopausal syndrome Laryngopharyngeal reflux Lactose intolerance Inguinal hernia Herpes zoster Hearing loss Dyspnea Degenerative joint disease 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 [facility] Social History Smoking/Tobacco Use Status: Former Tobacco Use Quit Date: 10/10/64 Smoking risk assessment performed?: Yes Alcohol Intake: current Alcohol Intake frequency: a few times a week Alcohol type: wine Drug use: Never Substance use type: does not use Housing: house Current gender identity: female Do you feel safe at home: Yes Additional Social history: UTAP Meds Allergies and Home Medications Allergies Allergy/AdvReac Type Severity Reaction Status Date / Time sulfamethoxazole (From Allergy Intermediate Skin Rash Verified 06/20/24 08:32 Bactrim) trimethoprim (From Bactrim) Allergy Intermediate Skin Rash Verified 06/20/24 08:32 caffeine (From Cafcit) Allergy Mild Unknown Verified 06/20/24 08:32 ragweed pollen Allergy Unknown Verified 06/20/24 08:32 amoxicillin (From Augmentin) AdvReac Intermediate Diarrhea Verified 06/20/24 08:32 cefuroxime (From Ceftin) AdvReac Intermediate Other (See Unverified 06/20/24 08:32 Comment) clavulanic acid (From AdvReac Intermediate Diarrhea Verified 06/20/24 08:32 Augmentin) dust Allergy Unknown Uncoded 06/20/24 08:32 Home Medications ?Medication ?Instructions ?Recorded ?Confirmed ?Type ascorbic acid (vitamin C) 1,000 mg 1 g PO Q6H 05/28/21 06/20/24 History tablet calcium carbonate 600 mg PO DAILY 05/28/21 06/20/24 History cholecalciferol (vitamin D3) 75 1,000 unit PO DAILY 05/28/21 06/20/24 History mcg (3,000 unit) tablet coenzyme Q10 30 mg capsule (CoQ-10) 100 mg PO DAILY 05/28/21 06/20/24 History epinephrine 0.3 mg/0.3 mL 0.3 mg IM Q5-15M PRN 05/28/21 06/20/24 History injection, auto-injector (EpiPen 2-Alvin) garlic 300 mg PO DAILY 05/28/21 06/20/24 History glucosamine-chondroitin 250 mg-200 2 tab PO QPC 05/28/21 06/20/24 History mg tablet (Osteo Bi-Flex) lactobacillus combination no.4 3 3,000 mmu cells PO DAILY 05/28/21 06/20/24 History billion cell capsule (Probiotic) lysine 500 mg tablet 1,000 mg PO BID 05/28/21 06/20/24 History multivitamin with minerals 1 tab PO DAILY 05/28/21 06/20/24 History (Hair,Skin and Nails tablet) omega-3 fatty acids 1,000 mg 1,000 mg PO HS 05/28/21 06/20/24 History capsule (Fish Oil Concentrate) resveratrol 50 mg capsule 150 mg PO HS 05/28/21 06/20/24 History apixaban 5 mg tablet (Eliquis) 5 mg PO BID 05/29/21 06/19/24 History chlorthalidone 25 mg tablet 25 mg PO DAILY 04/09/24 06/20/24 History metoprolol succinate 50 mg 100 mg PO HS 04/09/24 06/20/24 History tablet,extended release 24 hr rosuvastatin 10 mg tablet 10 mg PO DAILY 04/09/24 06/20/24 History psyllium husk 6 gram/6 gram oral 1 tbsp PO DAILY 06/19/24 06/20/24 History powder (Konsyl Sugar-Free) turmeric root extract 500 mg 1,000 mg PO HS 06/19/24 06/20/24 History capsule acetaminophen 500 mg tablet 1,000 mg (2 x 500 mg) PO TID #90 06/20/24 Rx tabs celecoxib 200 mg capsule 200 mg PO BID #60 caps 06/20/24 Rx oxycodone 5 mg tablet 5 mg PO Q4H PRN pain #20 tabs 06/20/24 Rx pantoprazole 40 mg tablet,delayed 40 mg PO DAILY #30 tabs 06/20/24 Rx release Exam Const General: cooperative, healthy appearing, comfortable and no acute distress Resp Effort & Inspection: normal respiratory effort Auscultation: clear to auscultation bilaterally Cardio Rate: regular rate Rhythm: regular rhythm Results Last Vital Signs Temp 36.4 C L 06/20/24 08:07 Pulse 67 06/20/24 08:07 Resp 16 06/20/24 08:07 BP 186/88 H 06/20/24 08:07 Pulse Ox 97 06/20/24 08:07
--- NOTE | 2024-06-20 09:28 | W.PM.DSUDISC ---
Date of service: 06/20/24 Time of Service: 09:28 Discharge Plan Disposition Patient Disposition: Home Condition: Good Discharge Details Reason For Visit: R THR Attending Provider: Ethan Funes Primary Care Provider: Rob Domingo Home Meds and New Rx's Prescriptions: New celecoxib 200 mg capsule 200 mg PO BID Qty: 60 0RF acetaminophen 500 mg tablet 1,000 mg PO TID Qty: 90 3RF pantoprazole 40 mg tablet,delayed release (DR/EC) 40 mg PO DAILY Qty: 30 0RF tramadol 50 mg tablet 50 mg PO Q4H PRNQty: 20 0RF Continued rosuvastatin 10 mg tablet 10 mg PO DAILY chlorthalidone 25 mg tablet 25 mg PO DAILY calcium carbonate 600 mg calcium (1,500 mg) tablet 600 mg PO DAILY coenzyme Q10 [CoQ-10] 30 mg capsule 100 mg PO DAILY epinephrine [EpiPen 2-Alvin] 0.3 mg/0.3 mL auto-injector 0.3 mg IM Q5-15M PRN Rx Instructions: do not exceed 3 doses per episode omega-3 fatty acids [Fish Oil Concentrate] 1,000 mg capsule 1,000 mg PO HS garlic Tablet 300 mg PO DAILY multivitamin with minerals [Hair,Skin and Nails] Tablet 1 tab PO DAILY lysine 500 mg tablet 1,000 mg PO BID glucosamine-chondroitin [Osteo Bi-Flex] 250-200 mg tablet 2 tab PO QPC Probiotic 3 billion cell capsule 3,000 mmu cells PO DAILY Rx Instructions: administer with a meal resveratrol 50 mg capsule 150 mg PO HS ascorbic acid (vitamin C) 1,000 mg tablet 1 g PO Q6H cholecalciferol (vitamin D3) 75 mcg (3,000 unit) tablet 1,000 unit PO DAILY Eliquis 5 mg tablet 5 mg PO BID metoprolol succinate 50 mg tablet extended release 24 hr 100 mg PO HS Konsyl Sugar-Free 6 gram/6 gram powder 1 tbsp PO DAILY Rx Instructions: mix into at least 8 oz of water or juice before administering turmeric root extract 500 mg capsule 1,000 mg PO HS Discontinued acetaminophen 500 mg capsule 1,000 mg PO Q8H PRN PRN (Reason: pain) Qty: 90 0RF Discharge Instructions Additional Instructions: Total Hip Discharge Instructions Activity: The most important activity is to walk. You should try to take short walks a few times a day. You have no restrictions on movement or positioning, but do not try to force what you do. You will find some stiffness and weakness with hip flexion (lifting your knee). Do not try to strengthen this too early, continue to practice walking and stairs and this will come. - Outpatient physical therapy can be helpful to help return you to a normal gait and improve your flexibility and strength. This can start around 2 weeks. For some patients, it?s not necessary. Usually this is determined at the time of discharge or at the first post-operative visit. - You should wear the ADEOLA hose on both legs for 2 weeks. Dressing: Keep the surgical dressing in place for at least one week. After the first week it may be removed and replace with light gauze and tape or nothing. It may get wet after 3 days but avoid soaking the dressing. If it gets wet, just lightly pat dry. It is important to always keep some gauze between skin folds, especially when you are sitting. Spend some time with the wound exposed when you are lying flat as the incision does wrinkle onto itself. Medications: - You should take Tylenol and an anti-inflammatory Celebrex as your primary pain control medications. If the Celebrex is too expensive or not covered, please call the office for another alternative (Advil/Ibuprofen or Naproxen/Aleve). - You have been prescribed a stronger pain medication tramadol for breakthrough pain, take as needed as prescribed. - You have also been prescribed a stomach acid reduction agent Pantoprozole to help reduce stomach acid and reflux. - You will be taking your abixaban for DVT prevention unless instructed otherwise. - If you have constipation you should take Colace or Miralax (both [id number]). It takes most people 3-4 days to have a bowel movement. Follow-up: 2 weeks If you have any acute concerns or questions, please do not hesitate to contact the office at [phone]. You may contact Dr. Funes with any questions after hours through the hospital at [phone] or on his cell phone at [phone]. Referrals: Ethan Funes MD [ [facility] STAFF PHYSICIAN] - Equipment/Supplies: Walker Activity:: Activity as Tolerated Shower/Bathe:: 72 hours Diet:: As Tolerated Discharge Orders Discharge Orders: Discharge Order (Routine); Ordered 06/20/24 Ordered By: Reginald Garcia DS: Diagnosis Discharge Diagnosis (1) Osteoarthritis of right hip: Status: Resolved
[2024-06-20] MEDS: ceFAZolin 2 GM/50 ML BAG IVPB (10:48)
[2024-06-20] MEDS: TRANEXAMIC ACID/SOD. CHL. 1,000 MG/100 ML BAG 600 MG IVPB (10:50)
--- NOTE | 2024-06-20 12:05 | W.PM.OP ---
Date of service: 06/20/24 Time of Service: 10:55 Operative Note Operative Note DATE OF PROCEDURE: 06/20/24 PRE-OP DIAGNOSIS: Right Hip Osteoarthritis POST-OP DIAGNOSIS: same PROCEDURE: Right Anterior Total Hip Arthroplasty with Intraoperative Navigation SURGEON: Ethan Funes HOOP FLARING MACHINE OPERATOR: Reginald Garcia ANESTHESIA TYPE: Spinal Refer to Anesthesia Record ESTIMATED BLOOD LOSS: 200 PATHOLOGY: none sent TOURNIQUET TIME: 0 COMPLICATIONS: None Patient was transported to: PACU Patient's condition: stable Implants: 1. Depuy [place] Acetabular Component, 52mm 2. Depuy Acetabular Liner, [id number] 3. Depuy Corail Short Neck Collared Femoral Stem, Size 12 4. Depuy Altrx Ceramic Femoral Head, Size 36+5mm Indications: I have seen Shala in clinic for symptoms of hip arthritis, confirmed with radiographic findings. She has exhausted nonoperative methods and was having significant limitations in daily function and desired better function and less pain. I discussed the technical details of a hip replacement. I explained the risks of the procedure to include, but not limited to, bleeding, infection, pain, stiffness, fracture, damage to nerves and vessels, damage to muscles and tendons, loosening, instability, leg length inequality, need for repeat procedure, blood clot and cardiopulmonary demise. Despite these risks, Shala elected to proceed. Findings: There was significant signs of arthritis throughout the hip. Procedure Description: Shala was greeted in the preoperative holding area where the correct side was identified and marked. The consent was reviewed with the patient and signed. The history and physical was updated. All questions were answered. She was taken back to the operating room. A spinal anesthestic was then administered. The feet were wrapped with cast padding and Coban and then placed into the boot liners and then into the boots. Care was taken to protect the skin and make sure the heels were fully down and the boots were stable. The patient was then positioned onto the HANA table. Both legs were held in a neutral position. SCDs were applied. The patient was then slid down onto a peroneal post. Prophylactic antibiotics in the form of Cefazolin were administered. 1g of Tranxemic Acid was given intravenously within 30 minutes of incision. The right leg was then prepped with Chloraprep and draped in a standard fashion. A second prep with Chloraprep was performed prior to placement of a shower-curtain type drape with Iodine impregnated skin protection. A timeout to confirm correct identity, side and site, procedure, allergies, anesthesia, and medical concerns was performed. An obliquely oriented incision was made starting lateral to the ASIS and running distal over the Tensor Fascia Liliane (TFL) muscle belly toward the fibular head, approximately 10cm. The skin and soft tissue was dissected sharply, through Rolly?s fascia, and to the fascia of the TFL. With the fascia and superior border of the IT band identified, the fascia was incised with a new knife just above any perforators from the IT band. The TFL muscle belly was bluntly dissected away from the fascia and moved laterally. The fat between TFL and rectus was identified to ensure the dissection was not within the TFL. Blunt dissection created space between abductors and the capsule and retractor was placed over the lateral femoral neck. The fibers of the rectus femoris tendon were identified and these were freed from the anterior capsule. A second cobra retractor was placed around the medial femoral neck. The TFL was further retracted laterally to show the deep fascia. Careful dissection through this layer identified three main crossing vessels of the lateral femoral circumflex. These were cauterized in multiple locations and then cut without any noticeable bleeding. The TFL was further released bluntly from the deep fascia to expose anterior hip capsule and fat The soft tisuse orthopaedic retractor was then placed beneath the TFL and against sartorius and medial soft tissues to protect and retract the soft tissues. A T-capsulotomy was then performed starting at the superior lateral acetabulum and moving distally to the intertrochanteric ridge. These capsular flaps were tagged with a No. 1 Ethibond and elevated from within. The capsular flaps were released to the shoulder of the lateral neck and to the lesser trochanter to give excellent visualization of the proximal femur. A neck osteotomy was performed using an oscillating saw based on preoperative templates. This cut started in the shoulder and of the lateral neck and exited medially. The saw was at all times directed medially to avoid injury to the greater trochanter. Gross traction was applied to the leg and the osteotomy opened. The femoral head was removed with a corkscrew, making sure to protect the TFL on its exit. Traction was released after head removal. This was measured on the back table to determine the starting reamer size. Portions of the rectus obscuring visualization were minimally elevated off the superior acetabulum. An anterior retractor was placed over the anterior wall between capsule and labrum and attached to the Gripper retraction system. The femur was rotated to 90 degrees and medial capsule was fully released until the lesser trochanter was palpable and visible; the femur was returned to 30 degrees. A posterior retractor was placed similarly between capsule and labrum. This provided excellent visualization. The contents of the cotyloid fossa were removed with electrocautery and the labrum was removed with a knife. There was a notable floor osteophyte. There was significant chondromalacia of the superior acetabulum. Acetabular reaming began with a 46mm reamer. This first reaming was directed anterior to posterior and medial to get down to the true floor. This was inspected and reamed until the true floor was reached. The anterior retractor was then released and entry and exit was provided by traction on the capsular flaps. I then reamed sequentially up to a 52mm reamer where good fit was obtained. The larger reamers were oriented based on anatomical reference of the anterior and lateral crook to ensure proper abduction and anteversion. Positioning and size was confirmed with the fluoroscopy. A 52mm Depuy [place] acetabular component was selected. The acetabulum was reamed around the periphery with the selected acetabular size to prevent a rim fit. The deep tissues were irrigated. The acetabular component was then impacted in a position of about 40-45 degrees of abduction and 15-20 degrees of anteversion, using the patient?s anatomy as the ultimate landmark. Fluoroscopy was used to confirm this. There was excellent elementary science teacher of the acetabular component and the inserting handle was removed. There appeared to be some space below the apex of the cup on the x-ray. However, this was inspected directly at the level of the center most hole where there is no space seen. The acetabular liner, Depuy [id number] polyethylene liner, was inserted and lined up with the tines of the acetabular component. There was no soft tissue interposition. The liner was then impacted into position and confirmed to be well-seated. A portion of the whitley-articular cocktail was then injected around the acetabulum into the capsule and periosteum. This cocktail consisted of 123mg of Ropivacaine, 0.25mg of Epinephrine, 0.04mg of Clonidine, and 15mg of Ketorolac, diluted to 50cc. The leg was rotated to 120 degrees. Any remaining medial capsule was released until the lesser trochanter was easily palpable. A retractor was placed medially. The lateral capsule was further released into the shoulder to allow access to the greater trochanter. A Radford retractor was placed over the greater trochanter which allowed the trochanter to flip in front of the capsule for excellent exposure. The leg was brought down into maximal extension and 20 degrees of adduction while ensuring there was no impingement on the acetabulum. Any remnant capsule within the trochanter was released. Piriformis and obturator externis were identified and protected. There was excellent access to the proximal femur. The lateral neck remnant was removed with a rongeur. A blunt canal probe was used to identify the canal and trajectory for later broaching. A box osteotome initiated the broach course. A small curved rasp and a curved curette were used to work laterally. Broaching then began with a size 8 Corail broach. This was inserted manually around the trochanter and into the canal before mallet blows. The broach was seated to a few millimeters below the cut level based on the neck cut and the preoperative template. Sequential broaching was continued with the Maganda [employer]erals[employer] pneumatic broaching device until a tight fit was obtained with good rotational control of the femur. A trial short neck was inserted along with a +5 trial head. The leg was brought out of extension and adduction and then reduced with traction and internal rotation. The leg was stable anteriorly in a position of 30 degrees of extension and 90 degrees of external rotation. Fluoroscopy was used to ensure there was no fracture and the stem was seated well. Leg lengths were checked with an AP pelvis and pelvic reference points. [email or web address] navigation system was used to confirm appropriate positioning and leg length and offset. Once content with the desired offset and leg lengths, the leg was brought back into extension, external rotation and adduction. The periosteum and surrounding tissue was injected with remaining portion of the whitley-articular cocktail. The proximal femur was irrigated as well as the deep tissues. The Depuy [place] Short Neck collared stem, size 12, was then manually inserted into the proximal femur making sure to control rotation. It was then malleted into position with light blows, giving breaks to allow bone expansion and decrease risk of fracture. The selected Depuy Altrx Ceramic Head, size 36+5mm, was then placed onto the clean and dry trunnion and secured with impaction onto the tapered fit. The leg was brought back out of extension and adduction and reduced with traction and internal rotation. Stability was confirmed with no shuck at 90 degrees of external rotation and 30 degrees of extension. No impingement through range of motion arc. Final x-ray images were obtained with fluoroscopy to confirm adequate positioning and no intraoperative fracture. The deep tissues were thoroughly irrigated with Surgiphor, betadine solution. This was allowed to sit in the wound for 3 minutes before being thoroughly irrigated out with normal saline. The capsule was then reapproximated with the previously placed Ethibond sutures. The TFL fascia was finally closed with a No. 2 Stratafix, barbed suture. Deep tissues were then reapproximated with 0 Vicryl and a running 2-0 Vicryl. The skin was closed with a running 4-0 Monocryl in a subcuticular fashion. This was reinforced with skin glue. A Mepilex silver dressing was applied. At the end of the case, all counts were correct. Shala was transferred to the hospital bed without difficulty and suffering no apparent complication. Shala has a good prognosis. Physical therapy will start today and without restrictions, weight-bearing as tolerated. She will return to her home dose of Apixaban 5mg for DVT prophylaxis.
[2024-06-20] MEDS: traMADol 50 MG TAB PO (13:19)
--- NOTE | 2024-06-20 14:52 | IN_ITS ---
PT Notes Visit Reasons: R THR Physical Therapy Day Surgery Initial Evaluation Date: 06/20/2024 Referring Doctor: SANTY Guido PT Orders: PT CONSULT: S/P Ortho Surgery Precautions: WBAT on the right LE with AD. Patient Profile/Admitting Diagnosis: Shala is an 84-year-old female with degenerative joint disease of the right hip and status post right total hip arthroplasty on postoperative day 0. PMHX: All Active Problems History of total right hip replacement (Acute 06/20/24) Snapping lateral band due to exostosis (Acute) Right middle finger PIPTrigger thumb of right hand (Acute) Dense breast (Acute) Hip osteoarthritis (Acute) Hypertension (Chronic) Left hip pain (Acute) Stress bladder incontinence, female (Acute) Vitamin D deficiency (Acute) Medical History History of malignant melanoma of skin faceRuptured lumbar disc lumbosacral regionHx of transient ischemic attack (TIA) 04/06/21 Uterovaginal prolapse, incomplete Stress at home Skin cancer Sinusitis Sciatica Postmenopausal bleeding ResolvedPostherpetic neuralgia history of shinglesOvarian cyst Osteopenia Menopausal syndrome Laryngopharyngeal reflux Lactose intolerance Inguinal hernia Herpes zoster Hearing loss Dyspnea Degenerative joint disease 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 Independent with all aspects of ADLs prior to surgery. Retired RN. Equipment Owned/DME: [employer] Subjective: Complains of pain in the front of the right knee. Denied headache, chest pain, and lightheadedness throughout session. Objective: General Observation: Mepilex Ag over surgical incision. TDS to be legs. present in room throughout session. Mental Status: A and o x 4 Pain: 2-3/10 in the R knee and distal thigh ROM: Right Lower Extremity: Hip flexion WFL. Hip abduction WFL. Knee flexion WFL. Ankle dorsiflexion WFL. Ankle plantarflexion WFL. Strength: Right Lower Extremity: Hip flexors 4-/5. Hip abductors 4-/5. Knee flexors 5/5. Knee extensors 4-/5. Ankle dorsiflexors 5/5. Ankle plantarflexors 5/5. Sensation: Intact as to pain and light pressure in B LE Bed Mobility/Transfers: Minimal cueing provided for use of B hands as needed for support, movement sequence, AD management, and posture to reduce fall risk and minimize pain report Sit to stand stand by assist with FWW Stand to sit stand by assist Bed to chair stand by assist Gait: Facilitated safe and correct performance of level surface ambulation covering a distance of 150 feet using front wheeled walker with step through gait pattern requiring only standby assist and minimal verbal cueing for AD management, limb advancement, weight distribution, and posture to minimize risk and reduce pain report. Balance: Static Sitting: Normal Dynamic Sitting: Normal Static Standing: Fair Dynamic Standing: Fair Special Tests: Mobility Limitations Standardized Measure [facility] AM-PAC 6 clicks Basic Mobility Inpatient Short Form: Raw Score: 24 CMS Score: 0% deficit Informed Consent/Education: Patient instructed in purpose of PT consult. Packet containing CARMEN exercise protocol has been given to patient. Education and training on initial set of exercises that can be done at home have been completed with patient. Trained patient with correct performance of exercises below to maximize motor control, joint flexibility, soft tissue extensibility of the R hip musculature to facilitate return to independent functional mobility performance. Access Code: [email or web address] URL: [email or web address] Date: 06/20/2023 Prepared by: Edith Ventura Exercises - Gluteal Sets - 1 x daily - 7 x weekly - 1 sets - 10 reps - 5 hold - Supine Heel Slide - 1 x daily - 7 x weekly - 1 sets - 10 reps - 5 hold - Supine Ankle Pumps - 1 x daily - 7 x weekly - 1 sets - 10 reps - 5 hold - Seated March - 1 x daily - 7 x weekly - 1 sets - 10 reps - 5 hold - Seated Long Arc Quad - 1 x daily - 7 x weekly - 1 sets - 10 reps - 5 hold Assessment: Patient requires the use of a front wheeled walker for mobility ADL performance to maximize independence and reduce fall risk. Patient presents with clinical signs and symptoms consistent with current/admitting diagnoses that have resulted to mobility limitations, gait instability, generalized weakness, and impairment of motor control as demonstrated by the following impairment level findings: 1. Decreased strength to left hip major muscle groups 2. Impaired standing balance Impairments are contributing to the following functional limitations: 1. Inability to safely ambulate without assistive device 2. Increase completion time for mobility ADL performance 3. Increased fall risk Patient is assessed as a 73115 moderate complexity based on the following: History: 84-year-old female with impairment level findings, functional limitations, and past medical history as indicated above Examination: Demonstrable impairment in strength, balance, and mobility level with underlying impairments and functional limitations as documented above Presentation: Evolving Decision Makin moderate complexity Goals: N/A. PT evaluation and 1-2 treatment sessions only for functional mobility training using recommended AD and for HEP instruction. Plan of Care/Treatment Plan: N/A. PT evaluation and 1-2 treatment session only for functional mobility training using recommended AD and for HEP instruction. DISCHARGE RECOMMENDATIONS: Home when medically cleared by orthopedic surgeon. Recommend outpatient PT services in order to optimize functional mobility outcomes and facilitate return to independent community ambulation without an assistive device. TREATMENT CODE/TIME: 60843 x 20 minutes for 1 unit, 35116 x 17 minutes for 1 unit (14:12-14:49). Thank you for the opportunity to participate in the care of this patient. Please sign an return this page within 30 days if you agree with the above POC. Thank you! Physician Signature Date [facility] Thank you for the opportunity to participate in the care of this patient. Edith Ventura PT, DPT, CLT [facility], [place]
--- NOTE | 2024-06-20 14:56 | W.ANESPOSTOP ---
Postoperative Evaluation Date, Time and Location Date Performed: 06/20/24 Time Performed: 14:56 Patient Location: Day Surgery Unit Vital Signs Most Recent Imported Vital Signs: Most Recent Vital Signs Temp Pulse Resp BP Pulse Ox 36.2 C L 71 16 181/84 H 97 06/20/24 13:20 06/20/24 13:20 06/20/24 13:20 06/20/24 13:20 06/20/24 13:20 Pain Score Most Recent Pain Score: Most Recent Pain Score Pain Level 3 06/20/24 14:23 Assessment Mental Status: Awake (Alert & Oriented to Patient Baseline) Airway and Respiratory Function: Patent airway with normal (patient baseline) respiratory exam Cardiovascular Function: Hemodynamically Stable Hydration Status: Adequately Hydrated Nausea & Vomiting: No Nausea or Vomiting Pain: Pain is tolerable per patient Peripheral Nerve Block: Patient did not receive a nerve block
== END 2024-06-20 15:30 | disposition home or self-care (01) ==
PROVIDERS: PCP Family Medicine; Visit Provider Student in an Organized Health Care Education/Training Program
PROC: (CPT 27130; principal; 2024-06-20 09:45)
DX: M16.11 Unilateral primary osteoarthritis, right hip (principal); E55.9 Vitamin D deficiency, unspecified; N39.3 Stress incontinence (female) (male); I10 Essential (primary) hypertension
CPT/HCPCS: 20985; 27130; 97162; 97530; 73501; C1776; J0690; J1100; J2401; J2405; J2704

== ENCOUNTER 2024-07-05 13:33 | Outpatient (CLI) | payer MEDICARE, SELFPAY ==
--- NOTE | 2024-07-05 11:19 | DI.RAD_ITS ---
Exam(s) XR HIP RT COMPLETE AP PELVIS EXAM: XR HIP RT COMPLETE AP PELVIS CLINICAL HISTORY: F/U RIGHT CARMEN. TECHNIQUE: 2D digital imaging was performed. Two images were obtained. AP pelvis and lateral right hip views were obtained. COMPARISON: CR XR HIP RT COMPLETE AP PELVIS from 04/09/2024 XA XR HIP RT IN OR from 06/20/2024 FINDINGS: BONES: There are stable post operative changes of a right total hip arthroplasty present. No fractur e or dislocation. JOINTS: The orthopedic hardware is in good position. No evidence of hardware loosening. The patient has a prior left total hip arthroplasty. SOFT TISSUE: Normal. IMPRESSION: Stable right total hip arthroplasty. DATA REPOSITORY: RADIATION DOSE DELIVERED:
== END 2024-07-05 13:34 | disposition home or self-care (01) ==
LOC: DIORS 14:14
PROVIDERS: PCP Family Medicine; Referring Provider Family Medicine; Visit Provider Physician Assistant
DX: Z96.641 Presence of right artificial hip joint (principal); Z47.1 Aftercare following joint replacement surgery
CPT/HCPCS: 73502

== ENCOUNTER → 2024-08-02 09:58 | Outpatient (BNVA) | payer MEDICARE, SELFPAY | PROVIDERS: PCP Family Medicine; Referring Provider Family Medicine; Visit Provider Student in an Organized Health Care Education/Training Program | DX: Z47.1 Aftercare following joint replacement surgery (principal); Z96.641 Presence of right artificial hip joint | CPT/HCPCS: 99024 ==

== ENCOUNTER 2025-06-24 11:55 | Outpatient (CLI) | payer MEDICARE, SELFPAY ==
--- NOTE | 2025-06-24 10:45 | DI.RAD_ITS ---
Exam(s) XR HIP RT AP LAT ONLY EXAM: XR HIP RT AP LAT ONLY CLINICAL HISTORY: ANNUAL F/U R CARMEN. TECHNIQUE: 2D digital imaging was performed. Two images were obtained. AP and lateral views were obtained. COMPARISON: CR XR PELVIS AP from 07/09/2021 CR XR HIP LT COMPLETE AP PELVIS from 08/03/2021 CR XR HIP RT COMPLETE AP PELVIS from 04/09/2024 CR XR HIP RT COMPLETE AP PELVIS from 07/05/2024 FINDINGS: BONES: There are stable post operative changes of a right total hip arthroplasty present. No fracture or dislocation. JOINTS: The orthopedic hardware is in good position. No evidence of hardware loosening. SOFT TISSUE: Normal. IMPRESSION: Stable right total hip arthroplasty. DATA REPOSITORY: RADIATION DOSE DELIVERED:
== END 2025-06-24 11:56 | disposition home or self-care (01) ==
LOC: DIORS 11:55
PROVIDERS: PCP Family Medicine; Referring Provider Family Medicine; Visit Provider Physician Assistant
DX: Z47.1 Aftercare following joint replacement surgery (principal); Z96.641 Presence of right artificial hip joint
CPT/HCPCS: 99212; 73502